=== PATIENT | female | born 2000 | race Caucasian/White ===

== ENCOUNTER 2022-06-05 23:33 | Inpatient (IN) | payer SELFPAY, OTHER ==
[2022-06-05 23:33] VITALS: BMI 22.6
[2022-06-05] MEDS: Lactated Ringers 1,000 ML 200 ML IV (23:40)
[2022-06-06] VITALS (29 sets, daily range): BP systolic 103–133; BP diastolic 66–79; PULSE 68–111; TEMP 36.3–37.7; O2SAT 98–100
[2022-06-06 00:01] LABS: Absolute Lymphocyte Count 1.77 X10^3/uL (0.83-4.51); Absolute Neutrophil Count 10.5 X10^3/uL (2.0-7.7); Basophil# 0.01 X10^3/uL; Basophil% 0.1 % (0-1); Eosinophil# 0.12 X10^3/uL; Eosinophils% 0.9 % (0-5); Hemoglobin 12.9 g/dL (12.0-15.0); Lymphocyte # 1.77 X10^3/ul (0.83-4.51); Lymphocyte % 13.2 % (19-41); Mean Corp Hgb Conc 35.8 g/dL (32-36); Mean Corpuscular Hgb 32.3 pg (27.0-32.0); Mean Platelet Vol. 9.5 fl (6.2-12.0); Monocyte# 0.97 X10^3/uL; Monocyte% 7.2 % (0-10); NRBC Flagged by Analyzer 0 % (0-5); Neutrophil % 78.2 % (47-70); Platelet Count 269 K/mm3 (150-450); RBC Distribution Width CV 12.5 % (11.6-14.6); RBC Distribution Width SD 41.1 fl (35.1-43.9); White Blood Count 13.4 K/mm3 (4.4-11.0)
[2022-06-06 00:11] LABS: Bacteria 0 SEEN /hpf (None Seen); Mucous, Urine 0 SEEN /hpf (<or=2+); Red Blood Cells-Urine 0 SEEN /hpf (0-5); White Blood Cells 0 SEEN /hpf (0-5)
[2022-06-06] MEDS: Betamethasone/Betamethasone 30 MG/5 ML Vial 12 MG IM (00:15)
[2022-06-06 00:48] LABS: Color, Urine Yellow (Yellow); Glucose, Dipstick Normal (Normal); Ketone-Dipstick Negative (Negative); Leukocyte Esterase-Dipstick 25 /ul (Negative); Nitrite-Dipstick Negative (Negative); Occult Blood-Urine Negative /ul (Negative); Protein-Dipstick Negative (Negative); Specific Gravity, Urine 1.015 (1.002-1.030); Urine Bilirubin Dipstick Negative (Negative); Urine Clarity Cloudy (Clear); Urine Urobilinogen Normal (Normal)
[2022-06-06 00:49] LABS: Amphetamine Urine VISTA NEGATIVE (<1000 ng/mL); Barbiturate Urine VISTA NEGATIVE (< 200 ng/mL); Benzodiazepine Urine VISTA NEGATIVE (< 200 ng/mL); Cocaine Urine VISTA NEGATIVE (< 300 ng/mL); Ecstacy Urine VISTA NEGATIVE (< 500 ng/mL); Methadone Urine VISTA NEGATIVE (< 300 ng/mL); PCP Urine VISTA NEGATIVE (< 25 ng/mL); THC Urine VISTA NEGATIVE (< 50 ng/mL); Vista UDS pH Range 7
[2022-06-06 00:55] LABS: Amorphous Sediment 3+; Squamous Epithelial Cells - UA 0-5 SEEN /hpf (5-10)
--- NOTE | 2022-06-06 01:18 | HP.PCM.OB_ITS ---
HPI - General General Date of Admission: 06/05/22 HPI Narrative STALIN LOPEZ, is a 22 F who presents with ctxs. Maternal Data Information Final ALBERT: [birth year] Gestational age: 34&1 [facility] Medical History (Updated 06/06/22 @ 01:[address] Koby Lincoln MD) Headache depression Thyroid disorder Allergy/AdvReac Type Severity Reaction Status Date / Time No Known Allergies Allergy Verified 06/05/22 23:35 Social History Smoking Status: Never smoker History Elective abortions Hx Para 1 Spontaneous abortions Hx # Term Pregnancies Ectopic pregnancies Hx # Pregnancies Multiple births # of living children NST FHR Rate Baby A Baseline: 150 Variability:: Moderate Accelerations:: 15 x 15 Decelerations:: None Uterine Activity:: Q2 minutes Vital Signs Vital Signs Vital Signs: 06/06/22 00:22 06/06/22 00:22 06/06/22 00:22 Temperature Temperature Source Pulse Rate 93 93 Blood Pressure 125/79 H BP Systolic 125 BP Diastolic 79 Pulse Ox 06/06/22 00:22 06/06/22 00:22 06/06/22 00:22 Temperature 99.8 F H Temperature Source Temporal Pulse Rate Blood Pressure BP Systolic BP Diastolic Pulse Ox 99 Weight Weight: 132 lb 0.91 oz Body Mass Index (BMI) 22.6 Physical Exam Const alert, oriented x3 and no apparent distress GI soft to palpation, non-tender and non-distended Inspection: gravid external exam normal Narrative: cvx - 8/90/-1, AROM clear fluid Labs Labs Labs: Blood Type A POSITIVE Antibody Screen NEGATIVE Hct 36.0 % (37-47) L Hgb 12.9 g/dL (12.0-15.0) Syphilis Total Ab Pending Rubella IgG Antibody Pending Hep Bs Antigen Pending HIV 1&2 Antibody Pending Group B Strep DNA Pending No formal PNC. Care with composition floor layer. Patient reports US at 12 & 22 weeks - per composition floor layer present these were not done a a medical facility. Patient reports bleeding at 18 weeks this . She states her first was a FT delivery without complications at 40&5. Assessment & Plan (1) labor: COMMENT: @ 34&1 PLAN: Admit to L&D GBS unknown - start pcn PNB ordered COVID negative Peds notified by RN Routine care
[2022-06-06] MEDS: miSOPROStol 200 MCG Tablet 1000 MCG RC (01:33)
--- NOTE | 2022-06-06 01:52 | EX.PCM.OBRPT ---
Maternal Data Information Final ALBERT: [birth year] Gestational age: 34&1 Vaginal Delivery Maternal Presentation Maternal Presentation: Active Labor Operative Information Date of Procedure: 06/06/22 Pre-Operative Diagnosis: labor Post-Operative Diagnosis: Same Surgery / Procedure Performed: Spontaneous Vaginal Delivery Type of Anesthesia: None Findings Description of Procedure: Patient prepped & draped when C/C/+2. She pushed well to deliver the head. Tight nuchal cord clamped & cut. Body then easily delivered. Placenta delivered with gentle traction and good uterine tone obtained. APGARS not determined at this time as baby required some resuscitation & pediatrics team still evaluating. Current FHR is 167. Presentation: Vertex Amniotic Membrane Rupture Type: Artificial Amniotic Fluid Description: Clear Placental Delivery Description: Expressed Placenta Disposition: [facility] Specimen(s) Removed: Placenta Cord Vessel Description: 3 Vessels Cord Entanglement: Around neck x 1, tight Nuchal Cord Compression: Without compression Infant A Gender: Male Delayed Cord Clamping: No Post Vaginal Delivery Medications Given After Delivery: - (Rectal cytotec) Episiotomy Description: None Laceration: 1st degree (vaginal - repaired with 3-0 vicryl) Complication Complications: None
[2022-06-06 02:46] LABS: Chlamydia Trachomatis by PCR Negative (Negative); Neisserai gonorrhoeae by PCR Negative (Negative); Probe Check PASS; Sample Adequacy Control PASS; Specimen Processing Control PASS
[2022-06-06] MEDS: Ibuprofen 600 MG Tablet PO ×2 (02:49→08:19)
[2022-06-06 03:14] LABS: HIV - WCH Non-Reactive (Nonreactive); Hepatitis B Surface Antigen Non-Reactive (Nonreactive); Hepatitis C Antibody Non-Reactive (Nonreactive)
[2022-06-06 04:39] LABS: Group B Strep DNA By PCR Negative (Negative); Internal Control PASS; Probe Check PASS; Specimen Processing Control PASS
[2022-06-06] MEDS: Acetaminophen 500 MG Tablet 1000 MG PO (08:19)
--- NOTE | 2022-06-06 08:28 | DS.PCM_ITS ---
Providers Date of Admission: 06/05/22 Primary Care Physician: No Primary Care Phys Reason For Visit: LABOR Diagnosis Discharge Diagnosis (1) labor: Status: Acute Code(s): O60.00 - labor without delivery, unspecified trimester Medications at Discharge Home Medications acetaminophen 500 mg tablet 1,000 mg PO Q6H PRN PRN Pain 1-10 Or Fever #0 tabs 06/06/22 ibuprofen 600 mg tablet 600 mg PO Q6H PRN PRN Pain Score 1-10 #0 tabs 06/06/22 Weight / BMI Weight Weight: 132 lb 0.91 oz Body Mass Index (BMI) 22.6 ABG / Lab / Microbiology Data Result Diagrams: 06/05/22 23:40 Laboratory: Laboratory Results - last 24 hr 06/05/22 23:40: WBC 13.4 H, RBC 4.00 L, Hgb 12.9, Hct 36.0 L, MCV 90.0, MCH 32.3 H, MCHC 35.8, RDW Std Deviation 41.1, RDW Coeff of [place] 12.5, Plt Count 269, MPV 9.5, Immature Gran % (Auto) 0.400, Neut % (Auto) 78.2 H, Lymph % (Auto) 13.2 L, [place] % (Auto) 7.2, Eos % (Auto) 0.9, Baso % (Auto) 0.1, Absolute Neuts (auto) 10.5 H, Absolute Lymphs (auto) 1.77, Nucleated RBC % 0 06/05/22 23:40: Blood Type A POSITIVE, Antibody Screen NEGATIVE 06/05/22 23:40: Hep Bs Antigen Non-Reactive, Hepatitis C Antibody Non-Reactive, HIV 1&2 Antibody Non-Reactive 06/05/22 23:55: Urine Color Yellow, Urine Clarity Cloudy, Urine pH 7.0, Ur Specific [place] 1.015, Urine Protein Negative, Urine Glucose (UA) Normal, Urine Ketones Negative, Urine Occult Blood Negative, Urine Nitrite Negative, Urine Bilirubin Negative, Urine Urobilinogen Normal, Ur Leukocyte Esterase 25 H, Urine RBC 0 SEEN, Urine WBC 0 SEEN, Ur Squamous Epith Cells 0-5 SEEN, Amorphous Sediment 3+, Urine Bacteria 0 SEEN, Urine Mucus 0 SEEN 06/05/22 23:55: Chlam trachomat DNA PCR Negative, N.gonorrhoeae DNA (PCR) Negative 06/05/22 23:55: Urine Opiates Screen NEGATIVE, Urine Methadone Screen NEGATIVE, Ur Barbiturates Screen NEGATIVE, Ur Phencyclidine Scrn NEGATIVE, Ur Amphetamines Screen NEGATIVE, MDMA (Ecstasy) Screen NEGATIVE, U Benzodiazepines Scrn NEGATIVE, Urine Cocaine Screen NEGATIVE, U Cannabinoids Screen NEGATIVE, Ur Drug Screen Comment 06/06/22 00:20: Group B Strep DNA Negative, Specimen Comment SINGLE SOURCE Microbiology: Microbiology 06/05/22 23:55 Nasal Secretion SARS-CoV-2 Antigen (Rapid) - Final Meaningful Use Info Meaningful Use Diagnoses (Choose all that apply): None applicable Discharge Plan Admission Admit Date/Time: 06/05/22 23:33 Primary Reason for Your Visit: Attending Provider: Koby Lincoln Primary Care Provider: Care Physician,No Primary Instructions Patient Instructions: After a Vaginal Discharge Orders/Prescriptions Prescriptions: New acetaminophen 500 mg Tablet 1,000 mg PO Q6H PRN PRN (Reason: Pain 1-10 Or Fever) Qty: 0 0RF ibuprofen 600 mg Tablet 600 mg PO Q6H PRN PRN (Reason: Pain Score 1-10) Qty: 0 0RF Referrals / Follow Up: Koby Lincoln MD [Med Staff - Active Staff] - (6 weeks visit) Care Physician,No Primary [Primary Care Provider] - Disposition Disposition (needs filled in before D/C Order can be placed): Home, Self Care
--- NOTE | 2022-06-06 08:28 | PCM.PN.OB ---
Subjective Subjective Doing well per patient and nursing staff. Ambulating and taking PO without difficulty. Voiding and passing flatus. Pain controlled. , pumping. Denies headache, visual changes, chest pain, shortness of breath, leg pain or increased bleeding. Lochia normal.Baby being transferred via squad to [facility] and requesting discharge. Objective Data Objective Data Vital Signs: Vital Signs Temp Pulse BP Pulse Ox 98.1 F 83 113/67 98 06/06/22 03:40 06/06/22 07:32 06/06/22 07:32 06/06/22 03:40 Weight: 132 lb 0.91 oz Body Mass Index (BMI) 22.6 Intake & Output: Intake and Output for Last 24 Hours 06/04/22 06/05/22 06/06/22 23:59 23:59 23:59 Intake Total 1361.67 / 1361.67 Output Total 1000 / 1000 Balance 361.67 / 361.67 Lab / Micro Data Result Diagrams: 06/05/22 23:40 Labs: Laboratory Results - last 24 hr 06/05/22 23:40: WBC 13.4 H, RBC 4.00 L, Hgb 12.9, Hct 36.0 L, MCV 90.0, MCH 32.3 H, MCHC 35.8, RDW Std Deviation 41.1, RDW Coeff of [place] 12.5, Plt Count 269, MPV 9.5, Immature Gran % (Auto) 0.400, Neut % (Auto) 78.2 H, Lymph % (Auto) 13.2 L, [place] % (Auto) 7.2, Eos % (Auto) 0.9, Baso % (Auto) 0.1, Absolute Neuts (auto) 10.5 H, Absolute Lymphs (auto) 1.77, Nucleated RBC % 0 06/05/22 23:40: Blood Type A POSITIVE, Antibody Screen NEGATIVE 06/05/22 23:40: Hep Bs Antigen Non-Reactive, Hepatitis C Antibody Non-Reactive, HIV 1&2 Antibody Non-Reactive 06/05/22 23:55: Urine Color Yellow, Urine Clarity Cloudy, Urine pH 7.0, Ur Specific [place] 1.015, Urine Protein Negative, Urine Glucose (UA) Normal, Urine Ketones Negative, Urine Occult Blood Negative, Urine Nitrite Negative, Urine Bilirubin Negative, Urine Urobilinogen Normal, Ur Leukocyte Esterase 25 H, Urine RBC 0 SEEN, Urine WBC 0 SEEN, Ur Squamous Epith Cells 0-5 SEEN, Amorphous Sediment 3+, Urine Bacteria 0 SEEN, Urine Mucus 0 SEEN 06/05/22 23:55: Chlam trachomat DNA PCR Negative, N.gonorrhoeae DNA (PCR) Negative 06/05/22 23:55: Urine Opiates Screen NEGATIVE, Urine Methadone Screen NEGATIVE, Ur Barbiturates Screen NEGATIVE, Ur Phencyclidine Scrn NEGATIVE, Ur Amphetamines Screen NEGATIVE, MDMA (Ecstasy) Screen NEGATIVE, U Benzodiazepines Scrn NEGATIVE, Urine Cocaine Screen NEGATIVE, U Cannabinoids Screen NEGATIVE, Ur Drug Screen Comment 06/06/22 00:20: Group B Strep DNA Negative, Specimen Comment SINGLE SOURCE Micro: Microbiology 06/05/22 23:55 Nasal Secretion SARS-CoV-2 Antigen (Rapid) - Final Physical Exam Const alert and oriented x3 General Appearance: cooperative Orientation / Consciousness: awake, oriented to person, oriented to place and oriented to time Exam Limitations: no limitations HEENT normocephalic Head and Scalp: normal to inspection, normocephalic and atraumatic Face and Sinus: normal facial exam Eyes General Eye: normal appearance of both eyes Neck full ROM Chest Chest: symmetrical chest wall rise Resp normal respiratory effort and normal air movement Auscultation: clear to auscultation bilaterally Cardio regular rate, regular rhythm, S1 normal heart sound, S2 normal heart sound, no murmurs, no rub, no gallops and no clicks GI normal to inspection, nondistended, normoactive bowel sounds and non-tender appearance of the vagina normal Bladder / Kidney Exam: no CVA tenderness Back/Spine normal ROM Extremity normal to inspection and full ROM Skin no rashes or lesions noted Neuro oriented x3 and moves all extremities Sensorium / Orientation: awake, alert and oriented to person Motor Exam: clonus absent Deep Tendon Reflexes: Rt Patellar (L4): 2+ and Lt Patellar (L4): 2+ Assessment & Plan (1) labor: COMMENT: @ 34&1 PLAN: Plan 1) Routine care 2) Discharge due to baby transfer to [facility] 3) Patient requesting to follow up with optical effects layout person for care. Offered 6 week follow up with our office if she desires
[2022-06-06 08:46] LABS: Rubella IgG Reactive (Nonreactive); Syphilis Antibodies Non-reactive
--- NOTE | 2022-06-06 16:38 | NURSING ---
documentation on this patient from 06/06/22 from [id number] is for a different patient.
== END 2022-06-06 09:00 | disposition home or self-care (01) | DRG 807 ==
LOC: WP 06-06 08:11 → WPOUT 06-06 12:14
PROVIDERS: Admitting Provider Obstetrics & Gynecology; Visit Provider Obstetrics & Gynecology
DX: O60.14X0 Preterm labor third trimester with preterm delivery third trimester, not applicable or unspecified (principal); Z37.0 Single live birth; O69.2XX0 Labor and delivery complicated by other cord entanglement, with compression, not applicable or unspecified; O70.0 First degree perineal laceration during delivery; Z20.822 Contact with and (suspected) exposure to COVID-19; Z3A.34 34 weeks gestation of pregnancy
CPT/HCPCS: 59025; 59050; 80307; 81001; 85025; 86703; 86762; 86780; 86803; 86850; 86900; 86901; 87340; 87491; 87591; 87653; 87811; 99218; J7120; G0378; J0702